=== PATIENT | female | born 1935 | race Caucasian/White ===

== ENCOUNTER → 2020-01-12 14:42 | Outpatient (CLI) | payer MEDICARE, OTHER, SELFPAY ==
--- NOTE | 2020-01-12 | DI.ECHO.S_ITS ---
[place] [facility]---------+ [facility] +---------+ : : [address] : [address] : : : : [id number] : : : : Phone: [phone]+ Echocardiogram Report + + :Name: TREVER THOMAS Study Date: 01/12/2020 Height: 65 in : :[facility] Weight: 192 lb : : Gender: Female BSA: 1.9 m2 : :: 1935 Age: 84 yrs BP: 155/70 mmHg: :Reason For Study: BUNDLE BRANCH BLOCK : : Performed By: Marcelo Car : :Referring: UNSPECIFIED : + + Interpretation Summary Left ventricular systolic function is normal with an estimated ejection fraction of 60 to 65% without any focal wall motion abnormality. The left ventricle is borderline enlarged with normal wall thickness. There is likely a relaxation abnormality with normal filling pressures. The right ventricle appears at the upper limits of normal in size with normal systolic function. Right ventricular systolic pressure cannot be estimated but the CVP is around 3 mmHg. The left atrium is mildly enlarged. There is mild to moderate mitral regurgitation but no other significant valvular abnormality. Procedure: A two-dimensional transthoracic echocardiogram with color flow and Doppler was performed. The study quality was technically adequate. There is no prior echocardiogram noted for this patient. The patient was in normal sinus rhythm during the exam. The patient had occasional PVCs during the exam. Left Ventricle: The left ventricle is borderline dilated. There is normal left ventricular wall thickness. Left ventricular systolic function is normal without focal wall motion abnormalities. The ejection fraction is estimated to be 60-65%. Diastolic parameters suggest a relaxation abnormality of the left ventricle, consistent with probable normal filling pressures. Right Ventricle: The right ventricle is at the upper limits of normal in size. The right ventricular systolic function is normal. Atria: The left atrium is mildly dilated. Right atrial size is normal. The interatrial septum is intact with no evidence for an atrial septal defect. Mitral Valve: The mitral valve leaflets appear normal. There is no evidence of stenosis, fluttering, or prolapse. There is mild to moderate mitral regurgitation. Aortic Valve: The aortic valve is trileaflet. The aortic valve is mildly calcified. The aortic valve opens well. There is no aortic valve stenosis. There is trace aortic regurgitation. Tricuspid Valve: The tricuspid valve is normal in structure and function. There is trace tricuspid regurgitation. Pulmonary artery pressures cannot be estimated because of the lack of a measurable TR jet velocity but the IVC suggests a CVP of around 3 mmHg. Pulmonic Valve: The pulmonic valve is not well seen, but is grossly normal. There is trace pulmonic regurgitation. Great Vessels: The aortic root is normal size. The ascending aorta is at the upper limits of normal in size. The pulmonary artery is normal size. The IVC is of normal diameter and collapses greater than 50% with a sniff. This suggests a low right atrial pressure of 3 mm Hg. Pericardium/ Pleura There is no pericardial effusion. There is no pleural effusion. MMode/2D Measurements & Calculations LVIDd: 5.7 cm LVOT diam: 2.1 cm LVIDs: 3.4 cm Ao root diam: 2.9 cm FS: 39.7 % asc Aorta Diam: 3.4 cm EPSS: 0.96 cm IVSd: 0.97 cm LVPWd: 0.91 cm LV dorado. diameter/BSA (cm/m^2): 2.9 LV sys. diameter/BSA (cm/m^2): 1.8 LA dimension: 4.5 cm RA long axis: 4.8 cm LA A2 area: 23.3 cm2 RA area: 14.1 cm2 LA A4 area: 21.8 cm2 RA vol: 35.4 ml LA length (vol): 6.1 cm RA : 18.2 ml/m2 LA vol: 70.4 ml IVC diam: 1.7 cm LA vol index: 36.2 ml/m2 RVD1 (basal): 3.6 cm RVD2 (mid): 4.3 cm TAPSE: 2.2 cm Doppler Measurements & Calculations Ao V2 max: 166.6 cm/sec LVOT Max Bubba: 114.5 cm/sec Ao V2 mean: 114.4 cm/sec LV V1 max P.2 mmHg Ao max P.1 mmHg LV V1 VTI: 27.2 cm Ao mean P.8 mmHg AICHA(I,D): 2.7 cm2 Ao V2 VTI: 33.5 cm AICHA(V,D): 2.3 cm2 sev ratio: 0.81 AICHA indexed to BSA (cm^2/m^2): 1.4 MV E max bubba: 68.1 cm/sec TR max bubba: 198.2 cm/sec MV A max bubba: 93.6 cm/sec TR max P.7 mmHg MV E/A: 0.73 PA V2 max: 109.0 cm/sec Med Peak E' Bubba: 4.3 cm/sec PA V2 mean: 81.4 cm/sec E/E' med: 15.8 PA mean P.9 mmHg Lat Peak E' Bubba: 4.0 cm/sec PA pr(Accel): 37.9 mmHg E/E' lat: 17.0 E/e' average: 16.4 MV dec time: 0.22 sec SV(LVOT): 91.3 ml Reading Physician:LAN
== END ==
PROVIDERS: Family Provider Internal Medicine; PCP Internal Medicine; Referring Provider Internal Medicine; Visit Provider Internal Medicine
DX: I34.0 Nonrheumatic mitral (valve) insufficiency (principal); I45.4 Nonspecific intraventricular block
CPT/HCPCS: 93306

== ENCOUNTER → 2020-01-28 10:01 | Outpatient (CLI) | payer MEDICARE, OTHER, SELFPAY ==
[2020-01-29 08:11] LABS: COVID19 Sendout Not Detected (Not Detect)
== END ==
PROVIDERS: Family Provider Internal Medicine; PCP Internal Medicine; Visit Provider Nurse Practitioner
DX: Z01.812 Encounter for preprocedural laboratory examination (principal)
CPT/HCPCS: 87635

== ENCOUNTER 2020-01-31 10:47 | Day surgery (SDC) | payer MEDICARE, OTHER, SELFPAY ==
[2020-01-24 09:40] VITALS: BMI 31.1
[2020-01-31] VITALS (15 sets, daily range): BP systolic 90–148; BP diastolic 38–69; PULSE 55–81; RESP 11–21; TEMP 35.5–36.8; O2SAT 95–100; BMI 29.9
--- NOTE | 2020-01-31 | DI.RAD.S_ITS ---
PROCEDURE: XR PELVIS 1-2V INDICATIONS: intra operative TECHNIQUE: Intra-operative view of the pelvis and hip acquired. COMPARISON: None. FINDINGS: Bones: Intraoperative devices prior to placement of arthroplasty prostheses are in expected positions. No fractures or suspicious bony lesions. Soft tissues: Overlying surgical retractors are present, along with other intraoperative changes. IMPRESSION: Normal alignment established in preparation for placement of final components of right total hip arthroplasty. Dictated by: Vernon Mitchell M.D. on 01/31/2020 at 14:33 Approved by: Vernon Mitchell M.D. on 01/31/2020 at 14:33
--- NOTE | 2020-01-31 10:59 | DI.RAD.S_ITS ---
PROCEDURE: XR HIP W PEL IF DONE RT 2V INDICATIONS: total right hip TECHNIQUE: AP pelvis and lateral view of the right hip acquired. COMPARISON: None. FINDINGS: Bones: Patient is status post right hip arthroplasty, with hardware components in expected positions. The hip joint appears congruent. The visualized bony structures appear intact. Soft tissues: Overlying postoperative changes are noted. No suspicious soft tissue densities. IMPRESSION: Normal alignment established after right total hip arthroplasty. Moderate left hip osteoarthritis is noted. Dictated by: Vernon Mitchell M.D. on 01/31/2020 at 16:44 Approved by: Vernon Mitchell M.D. on 01/31/2020 at 16:45
--- NOTE | 2020-01-31 10:59 | P.OP_ITS ---
Operative Date/Time/Diagnoses Date of procedure: 01/31/20 Time of procedure: 11:51 Pre-op diagnosis: Right hip osteoarthritis Post-op diagnosis: same Procedure & Clinicians Procedure: 1. Right total hip arthroplasty posterior approach, 2. right hip abductor repair Same procedure as scheduled: Yes Indications: The patient has had progressively worsening right hip pain with radiographic changes consistent with arthritis. Non-operative management has failed and the patient has requested total hip replacement. The risks, benefits and alternatives to surgery were discussed with the patient prior to proceeding. Risks discussed included, but were not limited to, failure to relieve pain, leg length discrepancy, dislocation, stiffness, infection, nerve damage, deep venous thrombosis, pulmonary embolism, stroke, coma, heart attack, permanent paralysis and , as well as the potential need for eventual revision of the prosthetic. Surgeon: Marisela Burrows Featheredge Machine Operator: Hill Wellington Click Yes if Unassisted: Yes Anesthesia Type: General and Spinal Operative Notes Findings: Severe right hip osteoarthritis, soft bone, large tear in the hip abductors with a fairly bare trochanter, adequate stability Closure Type: primary Specimen(s): none sent Prosthetic devices, grafts, tissues, transplants, or devices: [employer]rows [employer]hew R3 52, size 6 standard offset anthology, -3 femoral head, Arthrex 4.75 x 24 mm SwiveLock anchor Applied: drain(s) Estimated Blood Loss (mL): 250 Procedure in detail: The patient was seen in the pre-operative area, where the patient identified the right hip as the operative site and this was marked with my initials. The patient received pre-operative antibiotics and was taken to the operating room and placed on the operative table in the left lateral decubitus position after satisfactory anesthesia. A sales agent insurance out was performed. The right leg was prepared from the ankle to the iliac crest with ChloroPrep in the usual fashion and draped through sterile drapes. The hip was approached through an approximately 20 cm incision centered over the greater trochanter and curving gently posteriorly as it went proximally. This was carried sharply to the fascia hawk, which was divided and retracted with a self retaining retractor. The trochanteric bursa was excised with care being taken to avoid the sciatic nerve, which was identified and protected throughout the case. There was a fairly large tear in the hip abductors with essentially a bald appearing trochanter. The abductors were carefully mobilized and tension was pulled with an Allis was felt that the likely would be repairable at the completion of the procedure. Sutures were placed to tag the abductors. The short external rotators were incised and the capsulomuscular flap was raised and tagged for later repair. The hip was dislocated, and a femoral neck osteotomy performed approximately 15 mm above the lesser trochanter. Retractors were placed around the femur. The canal was opened with a box cutting osteotome, followed by a T handled reamer and a lateralizing reamer. The chili pepper broach was then used, followed by sequential broaching until there was good stability of the broach in the femur. Retractors were placed to expose the acetabulum. The labrum and central soft tissues were removed. Reaming was performed initially going up in 2 mm increments, then 1 mm increments until good bite was obtained with an odd sized reamer. The cup 1 mm larger than the last reamer was then inserted using the appropriate anteversion guides. A trial neutral liner was placed. The broach was placed in the canal. A trial head and neck were then placed and the hip relocated and checked for leg length and stability. An intraoperative film confirmed the component position and no evidence of fracture. The patient was stable in the position of sleep, of squatting, and could be put through a range of motion with 45 degrees internal rotation without dislocation. At 90 degrees flexion, internal rotation to 70 was possible before dislocation. This was felt to be satisfactory and the appropriate components were opened, and the trials were removed. The acetabular liner was impacted into position. The final stem was then impacted into the prepared femoral canal. A brief Betadine soak was performed while trialing with head options. The hip was meticulously irrigated with normal saline. Finally the femoral head was impacted onto the stem. The acetabulum was cleared of all material and the hip relocated one final time. The capsulomuscular flap was then repaired to the greater trochanter though an awl hole using the tag sutures. The short external rotators were repaired with a nonabsorbable suture. The abductors were meticulously mobilized and stabilized with an Arthrex 4.75 x 24 mm suture anchor with a SwiveLock and then multiple stitches. Reasonable quality repair was achieved. A deep drain was placed and brought out anteriorly. The fascia hawk was closed with Vicryl. The subcutaneous layer was closed with barbed sutures and SteriStrips. An Aquacel Ag dressing was applied and the patient was taken to recovery having tolerated the procedure well. Complications: none Post-operative Condition: stable Disposition: Acute Care Plan for aftercare: The patient will be maintained on a standard total hip replacement protocol with weight bearing as tolerated and posterior hip precautions. The patient will receive Aspirin and sequential compression devices for DVT prophylaxis. The patient will be discharged home when safe for the home environment.
--- NOTE | 2020-01-31 10:59 | PM.PREOP ---
Pre-operative Note COVID-19 COVID-19 status: Negative Interval Note History & Physical reviewed/Exam performed by Physician: Yes Changes to H&P: No
[2020-01-31] MEDS: CELECOXIB 200 MG CAPSULE PO (11:18)
[2020-01-31] MEDS: ACETAMINOPHEN 325 MG TABLET 975 MG PO (11:18)
[2020-01-31] MEDS: LACTATED RINGERS 1,000 ML 42 ML IV ×2 (11:19→13:57)
[2020-01-31] MEDS: VANCOMYCIN 1,000 MG/200 ML PIGGYBACK 200 MG IV (11:36)
[2020-01-31] MEDS: CEFAZOLIN 2 GM/100 ML FROZ.PIGGY IV ×2 (12:01→19:46)
[2020-01-31] MEDS: BUPIVACAINE LIPOSOME 266 MG/20 ML VIAL SUBCUT (12:42)
[2020-01-31] MEDS: BUPIVACAINE 0.25% W/ EPI 30 ML VIAL 60 ML INJ (12:43)
[2020-01-31] MEDS: SODIUM CHLORIDE IRRIG SOLUTION 250 ML, POVIDONE-IODINE SPONGE STICKS 1 APPLIC IRR (12:44)
[2020-01-31] MEDS: TRANEXAMIC ACID 1,000 MG VIAL 2000 MG INJ ×2 (12:44→14:12)
--- NOTE | 2020-01-31 12:51 | SUR.OPER ---
Lateral on padded OR bed. Gel axillary roll. Arms secured on padded armboard with pillow supporting top arm. Padded hip positioner braces x4 - anterior and posterior chest and pelvis. Additional gel pad used anterior pelvis. Gel pad under bottom leg from knee to foot and secured with tape over sheet.
[2020-01-31] MEDS: SODIUM CHLORIDE IRRIG SOLUTION 250 ML, EPINEPHrine 1 MG IRR (13:31)
--- NOTE | 2020-01-31 15:17 | SUR.PHASEI ---
Patient denies pain and nausea. Good pedal pulses. Has sensation at thigh. Unable to move LE's.
[2020-01-31] MEDS: ACETAMINOPHEN 325 MG TABLET 650 MG PO ×2 (16:28→20:52)
[2020-01-31] MEDS: IBUPROFEN 400 MG TABLET PO ×2 (16:28→20:52)
[2020-01-31] MEDS: LACTATED RINGERS 1,000 ML 125 ML IV (16:29)
--- NOTE | 2020-01-31 17:42 | PC.NURSE ---
Shift note: Patient arrived on floor @ 1540. AxOx3, can make needs known. Hx of recent fall (1 wk ago). Minimal movement in BLE, can feel pressure from SCDs only at time of assessment, spinal anethesia in effect. Saturating WNL on RA. Temp low, will continue to monitor. Aquacell to right hip CDI, HV patent and compressed. High fall risk d/t recent fall and sensory deficit from spinal, call light purpose and function education given, demonstration from patient.
[2020-01-31] MEDS: TRAMADOL 50 MG TABLET PO (18:05)
[2020-01-31] MEDS: ASPIRIN EC 81 MG TABLET PO (20:51)
[2020-01-31] MEDS: DOCUSATE 100 MG CAPSULE PO (20:52)
[2020-02-01] MEDS: LACTATED RINGERS 1,000 ML 125 ML IV (00:37)
[2020-02-01 04:20] VITALS: BP 123/57; PULSE 65; RESP 18; TEMP 36.6; O2SAT 98
[2020-02-01] MEDS: CEFAZOLIN 2 GM/100 ML FROZ.PIGGY IV (04:20)
[2020-02-01] MEDS: IBUPROFEN 400 MG TABLET PO ×2 (04:21→10:24)
[2020-02-01 05:56] LABS: Hematocrit 27.1 % (36-46); Hemoglobin 9.4 g/dL (12.0-16.0)
--- NOTE | 2020-02-01 07:59 | PM.PN.1 ---
Subjective Subjective Date Patient Seen: 02/01/20 Time Patient Seen: 07:59 Interval history: she notes that she is doing well. She does not have any nausea. She has been up to the bathroom. Her pain is adequately controlled with Tylenol. Exam Vital Signs (past 8 hours): - 02/01/20 04:20 Temperature 97.8 F Pulse Rate 65 Respiratory Rate 18 Blood Pressure 123/57 L Pulse Oximetry 98 Oxygen Delivery Method Room Air Oxygen Flow Rate 0 Narrative Exam Narrative: Calfs are soft bilaterally, her dressing is dry, she is able to lift her leg without significant difficulty, there is mild pain with gentle range of motion in the hip her leg lengths were equal Objective Labs Result Diagrams: 02/01/20 05:35 Labs: Laboratory Results - last 24 hr 02/01/20 05:35 Hgb 9.4 L Hct 27.1 L Assessment & Plan Assessment & Plan narrative: doing well after total hip arthroplasty. Plan to get her out of bed walking as tolerated and working with physical therapy and anticipate can be discharged home in the afternoon. She has outpatient physical therapy arranged.
[2020-02-01 09:00] VITALS: BP 126/66; PULSE 67; RESP 18; TEMP 36.6; O2SAT 96
[2020-02-01] MEDS: ACETAMINOPHEN 325 MG TABLET 650 MG PO (10:23)
[2020-02-01] MEDS: DOCUSATE 100 MG CAPSULE PO (10:24)
[2020-02-01] MEDS: LORATADINE 10 MG TABLET PO (10:24)
[2020-02-01] MEDS: ASPIRIN EC 81 MG TABLET PO (10:24)
[2020-02-01] MEDS: TELMISARTAN 40 MG TABLET PO (10:31)
--- NOTE | 2020-02-01 11:19 | PT.IIE ---
Current Diagnoses Unilateral primary osteoarthritis, right hip (01/31/20) Surgery Performed Operation Date: 01/31/20 12:15 Actual Procedures p Total Hip Arthroplasty, repair of hip abductor(Right) - Marisela Burrows MD Surgical History (Last Updated 01/24/20 @ 10:26 by Peyton Kaplan RN) History of arthroplasty of left knee (Acute 2016) History of arthroplasty of right knee (Acute 2008) History of colonoscopy (Acute) Hx of appendectomy (Acute) Hx of cholecystectomy (Acute) Hx of hand surgery (Acute) Hx of left hemicolectomy (Acute 05/2002) Hx of tubal ligation (Acute 1973) Medical History (Last Updated 01/24/20 @ 10:26 by Peyton Kaplan RN) Allergic rhinitis (Acute) 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) Colon cancer (Acute) Diastolic murmur (Acute) Hepatitis A (Acute 1956) Hernia (Acute) HLD (hyperlipidemia) (Acute) HTN (hypertension) (Acute) Lipoma (Acute) Ocular hypertension (Acute) Osteoarthritis (Acute) Pre-diabetes (Acute) RBBB (right bundle branch block) (Acute) Subclinical hypothyroidism (Acute) Venous insufficiency of leg (Acute) Physical Therapy Inpatient Evaluation/Re-Eval M1 PT/OT-IP Prior Functional Status Start: 02/01/20 08:26 Freq: NEEDED Status: Active Protocol: Document 02/01/20 09:17 (Rec: 02/01/20 11:19 [id number]) Medical Review Prior Functional Status Medical History Reviewed Yes Diet/Fluid Consistency Regular Communication Pt is an effective communicator with mild ROBINSON. seems to have short term memory deficits. Mobility and Gait Pt had 3 falls within the past 3 months. She uses FWW at all times since she felt her R LE often gave out. Pt mostly home bound and like to sit on her lazy boy chair. She has a high bed that requires her to use a 1 step stool. Activities of Daily Living and IADL's Pt has no difficulty for ADLs but / dtr assist in cooking, cleaning, driving and MD appointments. Social History Household Members spouse,children Living Arrangements Mobile home Number of Floors (Floors) One Floor Number of Stairs To Enter/Railing? rear entrance with 4 LUIS ALBERTO with R rail, L GATE WATCH from dtr. (pt prefers this ) front entrance with 4 LUIS ALBERTO with a landing and B rails. Home Environment Standard Height Toilet,Walk in Shower Home Equipment Front Wheel Walker,Raised Toilet Seat w/Armrests,Tub Transfer Bench Employment Status Retired Additional Social History Comment Pt lives with her in [facility] who is independent but does need to use walker at times. Pt's dtr from [place] will stay with pt for weeks to assist as needed. Pt also has a youngest son lives in [place] but he works timers inspector. Pt will have outpatient therapy at [facility] starting from Thursday. Pt has hx of B TKAs. M2 PT-IP Current Condition Start: 02/01/20 08:26 Freq: NEEDED Status: Active Protocol: Document 02/01/20 09:17 (Rec: 02/01/20 11:19 [email or web address]) Physical Therapy Current Condition Current Condition Evaluation Date 02/01/20 Treatment Diagnosis R YUDITH (Posterior) , difficulty in walking Onset Date 01/31/20 Precautions Posterior Hip Precautions No Hip Flexion > 90 degrees,No Hip Internal Rotation,No Hip Adduction Weight Bearing Status Weight Bearing Status Weight Bear as Tolerated M3 PT-IP Subjective Start: 02/01/20 08:26 Freq: NEEDED Status: Active Protocol: Document 02/01/20 09:17 (Rec: 02/01/20 11:19 [email or web address]) Subjective Physical Therapy Visit Type Type Initial Evaluation Visit Start Time 09:17 Visit Stop Time 09:50 Total Visit Minutes 33 Number of HYDRO TECHNICIAN Visits 0 Physical Therapy Visit Comments Patient Comments I feel pretty good today. Patient Goals to return home with dtr's assistance. Therapy Pain Assessment Pain When Pain Assessed During Mobility Pain Present Pain Present Pain Reported Location Right Hip Intensity 3 Scale Used Numeric (0 - 10) Description Acute Pain Management Techniques Timing of Activity with Medications M4 PT-IP Mobility and Gait Start: 02/01/20 08:26 Freq: NEEDED Status: Active Protocol: Document 02/01/20 09:17 (Rec: 02/01/20 11:19 [email or web address]) PT-Transfer Assessment Sit to and From Stand Sit to and from Stand Contact Guard Assistance,Use of Upper Extremities Equipment Transfer Assistive Device Gait Belt,Front Wheeled Walker Orthotic/Prosthetic Devices or Brace: No Transfers Transfer Destination Chair Transfer Technique FWW Transfer Ability Level of Assist Contact Guard Assistance,Use of Upper Extremities Comments Mobility Comments Pt was in chair after going to bathroom with BALL ROLLING MACHINE OPERATOR assistance upon PT arrival. BP at 131/66 HR 81. Denied any discomfort. Pt was able to recall 1/3 post op precautions and this PT gave her instructions afterwards. She completed sit to stand with slight staggered stance who was able to push off with one hand on armrest and FWW with CGA. She then practiced lateral weight shifting with FWW but had difficulty extending his R hip and knee. Pt then proceed to walk half of the [facility] with CGA FWW, along with W/C follow. She then sat in w/c with proper descent and WB through UEs on armrests. Pt was wheeled to stairs for stairs climbing. Instructed pt at first to lead with L to ascend and R to descend but pt was inconsistent with her strategy with foot placement while climbing 3 steps by using R handrail and L MOD GATE WATCH from this PT, and so was descending. Pt did the second trial who did slightly better but cont to forget to lead with post op leg to descend. Pt had slight difficulty to full WB on RLE and appear to be weak while descending. She then returned to w/c and back to her room and completed chair to chair transfer with stand step pivot with FWW and CGA. pt rested comfortably in chair and denied discomfort but fatigue. Call light placed within reach. BP at 126/75 HR 83 Gait Assessment Gait Gait Assistance Required: Contact Guard Assist Distance (Feet) 80 Able to Maintain Weight Bearing Status Yes During Gait Assistive Devices Assistive Device Gait Belt,Front Wheeled Walker Orthotic/Prosthetic Devices or Brace: No Gait Deviations General Gait Pattern Antalgic,Decreased Stride Length,Decreased Feet Clearance,Flexed Trunk,Lateral Trunk Lean,Step-to Gait Factors Limiting Gait Function Factors Limiting Gait Function Decreased Activity Tolerance, Decreased Strength,Limited Range of Motion,Pain,Poor Balance,Poor Safety Awareness, Respiratory Distress Comments Gait Comments see mobility comments Stair Climbing Assessment Evaluation Level of Assist On Stairs Moderate Assistance,1 Person Assistance Devices Stair Climbing Assistive Devices Straight Cane,Front Wheel Walker Technique/Endurance Stair Climbing Direction Ascend and Descend Stair Climbing Technique Step to Step Number of Steps Climbed 3 Query Text: Stair Climbing Set # Repetitions (reps) 2 Comments Stair Climbing Comments see mobility comments. Pt has difficulty with foot placement and needed mod GATE WATCH to ascend/ descend. R LE appeared to be weak and unstable. PT-Balance Assessment Sitting Balance and Reactions Static Sitting Balance Ability Normal Dynamic Sitting Balance Ability Normal Standing Balance and Reactions Static Standing Balance Ability Good Dynamic Standing Balance Ability Fair Device Used FWW M5 PT-IP Objective Assessments Start: 02/01/20 08:26 Freq: NEEDED Status: Active Protocol: Document 02/01/20 09:17 (Rec: 02/01/20 11:19 [email or web address]) Orientation Orientation/Cognition Level of Alertness Alert Orientation Name,Age,Birthday,Month,Date, Year,Day of Week,Place, Situation Language Function Ability No Deficits Noted Safety Awareness Understands Safety Issues Memory Description Short Term Impaired Comments pt has difficulty recalling post op precautions. Only able to recall 1/3 And need constant cues for foot placements during stair climbing Gross Range of Motion Upper Extremity ROM Assessment Within Functional Limits Lower Extremity ROM Assessment Right Impaired Strength Upper Extremity Strength Assessment Within Functional Limits Lower Extremity Strength Assessment Right Impaired Hip 4-/5 Knee 4+/5 Ankle 5/5 Coordination Assessment Gross Coordination Gross Coordination WNL Sensation Assessment Sensation Gross Sensation WNL Muscle Tone Muscle Tone WNL Yes M6 PT-IP Treatment Start: 02/01/20 08:26 Freq: NEEDED Status: Active Protocol: Document 02/01/20 09:17 (Rec: 02/01/20 11:19 [email or web address]) Physical Therapy Treatment Exercises Exercises Ankle Pumps,Gluteal Sets,Quad Sets Education Education Provided Precautions,Weight Bearing Status,Post-Op Packet,Safety M7 PT-IP Assessment and Plan Start: 02/01/20 08:26 Freq: NEEDED Status: Active Protocol: Document 02/01/20 09:17 (Rec: 02/01/20 11:19 [id number]) PT Summary Assessment and Plan Potential Rehabilitation Potential Good Status of Condition at Evaluation Stable Summary Impairments Pain,ROM,Strength,Balance,Bed Mobility,Transfers,Gait, Activity Tolerance Assessment Summary This is a low complexity evalution for this pleasant 84 yo female s/p POD 1 R YUDITH with posterior approach. Pt was stable with vital signs and did fairly well for transfers and ambulation. However, pt has difficulty remembering post op precautions and understanding strategy for stair climbing regarding foot placements who needed mod GATE WATCH and R rail. Her RLE appeared to be weak and slightly unstable during stair climbing. Recommended to conduct CG training with dtr this afternoon prior to d/c home with her assistance and outpatient PT. Goals Bed Mobility Goal Standby Assistance Transfer Goal Standby Assistance,Front Wheeled Walker Gait Goal Standby Assistance,Front Wheel Walker Gait Distance 150 Other Goals up/ down with 4STE R rail and L GATE WATCH with dtr. Days to Meet Goals 2 Frequency of Treatment Frequency Of Treatment Twice a Day Treatment Plan Physical Therapy Treatment Plan Bed Mobility Training,Transfer Training,Gait Training, Therapeutic Exercise,Balance Retraining,Post Op Education, Discharge Planning,Hot or Cold Pack,Neuromuscular Re-ed Other Recommendations and Next Treatment up/ down with 4STE R rail and Focus L GATE WATCH with dtr. review post op precautions Recommendations To Nursing Amount of Assist Needed 1 Person Assist Discharge Recommendations PT Discharge Recommendations Home with Assistance, Outpatient PT Transportation Needs at Discharge Private Vehicle
--- NOTE | 2020-02-01 11:25 | CM.DANOTE ---
DCP: Case received, EMR reviewed and met with patient. Introduced self and role. Was able to meet with patient to obtain information regarding her baseline activity level prior to surgery, and living situation. DCP assessment completed with information currently available. Patient is an 84 year old female who admitted yesterday morning to the care of the orthopedic team. PCP: Dr. Resendiz. Payer: confirmed: Medicare/[employer]. Patient came to the hospital for a surgical procedure. She had right total hip arthroplasty. Patient has history of osteoarthritis. Met with patient in her room. She is alert and oriented, pleasant. She resides in [place] with her spouse, Maurice. She also mentioned that her daughter will be coming over from [place] to help her out. Patient does have a FWW. She is not currently driving. She also has outpatient P.T. set up at [facility] in [place]. P: Patient is to be discharged home today, as soon as she works with P.T. Lucero Arriaga RN/Service Planner
--- NOTE | 2020-02-01 13:59 | PT.IPTN ---
Current Diagnoses Unilateral primary osteoarthritis, right hip (01/31/20) Surgery Performed Operation Date: 01/31/20 12:15 Actual Procedures p Total Hip Arthroplasty, repair of hip abductor(Right) - Marisela Burrows MD Physical Therapy Treatment Note M2 PT-IP Current Condition Start: 02/01/20 08:26 Freq: NEEDED Status: Active Protocol: Document 02/01/20 09:17 HH (Rec: 02/01/20 11:19 [email or web address]) Physical Therapy Current Condition Current Condition Evaluation Date 02/01/20 Treatment Diagnosis R YUDITH (Posterior) , difficulty in walking Onset Date 01/31/20 Precautions Posterior Hip Precautions No Hip Flexion > 90 degrees,No Hip Internal Rotation,No Hip Adduction Weight Bearing Status Weight Bearing Status Weight Bear as Tolerated M3 PT-IP Subjective Start: 02/01/20 08:26 Freq: NEEDED Status: Active Protocol: Document 02/01/20 13:51 HH (Rec: 02/01/20 13:59 [email or web address]) Subjective Physical Therapy Visit Type Type Treatment Note Visit Start Time 13:32 Visit Stop Time 13:50 Total Visit Minutes 18 Notes Pt's dtr and attended CG training Number of PREPARER SAMPLES AND REPAIRS Visits 0 Physical Therapy Visit Comments Patient Comments Im ready to try stairs again. Patient Goals to return home with dtr's assistance. Therapy Pain Assessment Pain When Pain Assessed During Mobility Pain Present Pain Present Pain Reported M4 PT-IP Mobility and Gait Start: 02/01/20 08:26 Freq: NEEDED Status: Active Protocol: Document 02/01/20 13:51 HH (Rec: 02/01/20 13:59 [email or web address]) PT-Transfer Assessment Sit to and From Stand Sit to and from Stand Standby Assistance,Use of Upper Extremities Equipment Transfer Assistive Device Gait Belt,Front Wheeled Walker Orthotic/Prosthetic Devices or Brace: No Transfers Transfer Destination Chair Transfer Technique FWW Transfer Ability Level of Assist Standby Assistance,Use of Upper Extremities Comments Mobility Comments Pt in chair upon PT arrival. Dtr and at bedside. able to recall all 3/3 precautions and needed min cues for stair climbing techniques. She completed sit stand with UE pushed off from chair SBA. She then amb half of [facility] with FWW SBA. Pt's gait speed is WFL as dtr stated. Pt then climbed 3 steps with R rail and LHHA from dtr x 2sets. She appeared to be steady and able to follow correct techniques for this session. She then returned to w/c and pt's dtr wheeled her back to room. Reviewed post op precautions again with pt's family. Both show good understanding and ready to assist pt at home. Gait Assessment Gait Gait Assistance Required: Contact Guard Assist Distance (Feet) 140 Able to Maintain Weight Bearing Status Yes During Gait Assistive Devices Assistive Device Gait Belt,Front Wheeled Walker Orthotic/Prosthetic Devices or Brace: No Gait Deviations General Gait Pattern Antalgic,Decreased Stride Length,Decreased Feet Clearance,Flexed Trunk,Lateral Trunk Lean,Step-to Gait Factors Limiting Gait Function Factors Limiting Gait Function Decreased Activity Tolerance, Decreased Strength,Limited Range of Motion,Pain,Poor Balance,Poor Safety Awareness, Respiratory Distress Comments Gait Comments see mobility comments Stair Climbing Assessment Evaluation Level of Assist On Stairs Minimal Assistance,1 Person Assistance Devices Stair Climbing Assistive Devices Right Railing Technique/Endurance Stair Climbing Direction Ascend and Descend Stair Climbing Technique Step to Step Number of Steps Climbed 3 Stair Climbing Set # Repetitions (reps) 2 Comments Stair Climbing Comments Pt demonstrated good stair climbing techqniues this time with correct pattern with min MAP DRAFTER from dtr on L side. Pt did not have an episode of giving out on RLE. PT-Balance Assessment Sitting Balance and Reactions Static Sitting Balance Ability Normal Dynamic Sitting Balance Ability Normal Standing Balance and Reactions Static Standing Balance Ability Good Dynamic Standing Balance Ability Fair Device Used FWW M5 PT-IP Objective Assessments Start: 02/01/20 08:26 Freq: NEEDED Status: Active Protocol: Document 02/01/20 09:17 (Rec: 02/01/20 11:19 [id number]) Orientation Orientation/Cognition Level of Alertness Alert Orientation Name,Age,Birthday,Month,Date, Year,Day of Week,Place, Situation Language Function Ability No Deficits Noted Safety Awareness Understands Safety Issues Memory Description Short Term Impaired Comments pt has difficulty recalling post op precautions. Only able to recall 1/3 And need constant cues for foot placements during stair climbing Gross Range of Motion Upper Extremity ROM Assessment Within Functional Limits Lower Extremity ROM Assessment Right Impaired Strength Upper Extremity Strength Assessment Within Functional Limits Lower Extremity Strength Assessment Right Impaired Hip 4-/5 Knee 4+/5 Ankle 5/5 Coordination Assessment Gross Coordination Gross Coordination WNL Sensation Assessment Sensation Gross Sensation WNL Muscle Tone Muscle Tone WNL Yes M6 PT-IP Treatment Start: 02/01/20 08:26 Freq: NEEDED Status: Active Protocol: Document 02/01/20 09:17 HH (Rec: 02/01/20 11:19 HH [id number]) Physical Therapy Treatment Exercises Exercises Ankle Pumps,Gluteal Sets,Quad Sets Education Education Provided Precautions,Weight Bearing Status,Post-Op Packet,Safety M7 PT-IP Assessment and Plan Start: 02/01/20 08:26 Freq: NEEDED Status: Active Protocol: Document 02/01/20 13:51 HH (Rec: 02/01/20 13:59 HH [id number]) PT Summary Assessment and Plan Potential Rehabilitation Potential Good Status of Condition at Evaluation Stable Summary Impairments Pain,ROM,Strength,Balance,Bed Mobility,Transfers,Gait, Activity Tolerance Progress Towards Goals Safe For Discharge Assessment Summary Pt's dtr and attended CG training session. Pt was able to recall all 3 precautions and min cues for stair climbing techniques. Pt' s dtr was able to assist pts; climbing stairs with min MAP DRAFTER and show good understanding of post op precautions. She previously assisted pt for her TKAs as well. Pt is safe to be d./c home with outpatient PT. Frequency of Treatment Frequency Of Treatment Discharge Recommendations To Nursing Amount of Assist Needed 1 Person Assist Discharge Recommendations PT Discharge Recommendations Home with Assistance, Outpatient PT Transportation Needs at Discharge Private Vehicle
== END 2020-02-01 14:43 | disposition home or self-care (01) ==
LOC: OR 10:49 → AC 10:55
PROVIDERS: Family Provider Internal Medicine; PCP Internal Medicine; Referring Provider Orthopaedic Surgery; Visit Provider Orthopaedic Surgery
PROC: 0SR90JZ Replacement of Right Hip Joint with Synthetic Substitute, Open Approach (ICD-10-PCS; CPT 27130; principal; 2020-01-31 12:15)
DX: M16.11 Unilateral primary osteoarthritis, right hip (principal); I10 Essential (primary) hypertension; E66.9 Obesity, unspecified
CPT/HCPCS: 27130; 36415; 72170; 73502; 85014; 85018; 97116; 97161; 97530; C1776; C9290; J0171; J0690; J2250; J2704; J3010

== ENCOUNTER → 2020-03-28 10:35 | Outpatient (CLI) | payer MEDICARE, OTHER, SELFPAY ==
[2020-01-31 15:51] VITALS: BMI 29.9
[2020-03-28 11:48] LABS: BUN Creatinine Ratio 19.5 (6-22); Blood Urea Nitrogen 15 mg/dL (7-17); Estimated Glomerular Filt Rate > 60.0 mL/min (>60)
== END ==
PROVIDERS: Family Provider Internal Medicine; PCP Internal Medicine; Referring Provider Orthopaedic Surgery; Visit Provider Orthopaedic Surgery
DX: M16.11 Unilateral primary osteoarthritis, right hip (principal); Z96.653 Presence of artificial knee joint, bilateral
CPT/HCPCS: 36415; 82565; 84520

== ENCOUNTER → 2020-03-29 11:26 | Outpatient (CLI) | payer MEDICARE, OTHER, SELFPAY ==
[2020-01-31 15:51] VITALS: BMI 29.9
--- NOTE | 2020-03-29 | DI.MRI.S_ITS ---
PROCEDURE: MR THORACIC SPINE WO/W CON INDICATIONS: Localized swelling, mass and lump, trunk TECHNIQUE: Noncontrast sagittal T1 spin echo and T2 fast spin echo, sagittal STIR, axial T1 and T2 fast spin echo through the thoracic spine. After the administration of contrast, axial and sagittal T1 spin echo with fat saturation through the thoracic spine. COMPARISON: None. FINDINGS: Image quality: Excellent. Alignment and curvature: Mild dextroconvex scoliotic curvature is seen. Accentuated thoracic kyphosis is seen. No focal AP alignment abnormality is seen. Marrow: Marrow is of normal overall signal. No acute vertebral body compression fractures. Spinal cord: Visualized spinal cord is of normal signal and size, without abnormal enhancement. Paraspinous soft tissues: No paravertebral masses or abnormal enhancement. Miscellaneous: Several levels of endplate irregularity are seen, which are overall most prominent at the T4-T5 level. Several levels of bridging anterior osteophytes are seen. No significant central canal or neural foraminal narrowing can be seen. Note is made of lower cervical spine degenerative change. IMPRESSION: Dextroconvex scoliotic curvature and accentuated thoracic kyphosis can be seen. Degenerative changes are seen, which are most prominent at the T4-T5 level, yet without a level of significant central canal or neural foraminal narrowing. Cervical spine degenerative changes are partially seen. If clinically appropriate, please consider a follow-up cervical spine MRI for further evaluation. Dictated by: Tano Berg M.D. on 03/29/2020 at 11:53 Approved by: Tano Berg M.D. on 03/29/2020 at 11:55
== END ==
PROVIDERS: Family Provider Internal Medicine; PCP Internal Medicine; Referring Provider Internal Medicine; Visit Provider Orthopaedic Surgery
DX: D17.1 Benign lipomatous neoplasm of skin and subcutaneous tissue of trunk (principal); M40.204 Unspecified kyphosis, thoracic region; M47.812 Spondylosis without myelopathy or radiculopathy, cervical region; M47.814 Spondylosis without myelopathy or radiculopathy, thoracic region
CPT/HCPCS: 72157

== ENCOUNTER 2021-01-30 17:51 | Emergency (ER) | payer MEDICARE, OTHER, SELFPAY ==
[2020-01-31 15:51] VITALS: BMI 29.9
--- NOTE | 2021-01-30 18:05 | DI.CT.S_ITS ---
PROCEDURE: CT HEAD/BRAIN WO CON INDICATIONS: trauma TECHNIQUE: Noncontrast 4.5 mm thick angled axial sections acquired from the foramen magnum to the vertex, with coronal and sagittal reformats. For radiation dose reduction, the following was used: automated exposure control, adjustment of mA and/or kV according to patient size. COMPARISON: None. FINDINGS: Image quality: Excellent. CSF spaces: Basal cisterns are patent. No extra-axial fluid collections. The ventricles are symmetric in size and shape. Brain: No intracranial bleeds or masses. There is cerebral volume loss for age, with resultant ventricular and sulcal prominence. There are periventricular and deep white matter chronic small vessel ischemic changes. There is intracranial internal carotid artery atherosclerosis. Skull and face: Calvarium and visualized facial bones appear intact, without suspicious lesions. Sinuses: Bilateral maxillary sinus mucosal thickening. IMPRESSION: No acute intracranial process. Mild bilateral maxillary sinus disease Dictated by: Redd Lewis M.D. on 01/30/2021 at 18:32 Approved by: Redd Lewis M.D. on 01/30/2021 at 18:33
--- NOTE | 2021-01-30 18:05 | DI.CT.S_ITS ---
PROCEDURE: CT CERVICAL SPINE WO CON INDICATIONS: trauma TECHNIQUE: Noncontrast 3 mm thick sections acquired from the skull base to the T4 level. Sagittal and coronal reformats were then constructed. For radiation dose reduction, the following was used: automated exposure control, adjustment of mA and/or kV according to patient size. COMPARISON: None. FINDINGS: Image quality: Excellent. Bones: No fractures or dislocations. Visualized superior ribs are intact. Loss of the normal cervical lordosis. Multilevel degenerative endplate sclerosis and spurring. Diffuse facet arthropathy. Moderate narrowing of the C5-C6 and C6-C7 disc spaces. There is diffuse mild to moderate narrowing throughout the remainder of the cervical and upper thoracic spine. Diffuse osteopenia. Soft tissues: Prevertebral soft tissues are normal in thickness. No paravertebral hematomas. No apical pneumothoraces. Presumed calcified granuloma seen in the right upper lobe on image 75. IMPRESSION: No acute fracture identified. Multilevel spondylosis and facet arthropathy. Diffuse osteopenia Dictated by: Redd Lewis M.D. on 01/30/2021 at 18:33 Approved by: Redd Lewis M.D. on 01/30/2021 at 18:37
[2021-01-30 18:06] VITALS: BP 154/70; PULSE 74; RESP 22; TEMP 36.9; O2SAT 96
--- NOTE | 2021-01-30 18:06 | DI.RAD.S_ITS ---
PROCEDURE: XR HIP W PEL IF DONE RT 2V INDICATIONS: trauma TECHNIQUE: AP pelvis with lateral view(s) of the right hip(s). COMPARISON: [facility], , XR HIP W PEL IF DONE RT 2V, 01/31/2020, 15:05. FINDINGS: Bones: No acute fracture. Expected alignment of right hip arthroplasty. The hardware appears intact. No evidence of hardware loosening. Lower lumbar spondylosis and mild left hip joint degeneration. Soft tissues: The visualized bowel gas pattern is normal. No suspicious soft tissue calcifications. IMPRESSION: Expected postoperative alignment. No acute fracture. Dictated by: Redd Lewis M.D. on 01/30/2021 at 18:56 Approved by: Redd Lewis M.D. on 01/30/2021 at 18:58
--- NOTE | 2021-01-30 19:07 | ED_ITS ---
HPI - General Adult General Chief complaint: Trauma Stated complaint: fell on sat, black eyes Time Seen by Provider: 01/30/21 18:27 Source: patient and family Mode of arrival: Ambulatory History of Present Illness HPI narrative: Patient is a 85-year-old female who is not on anticoagulation who several days ago was sitting down on to her toilet at home when she states that her feet went out from under her and she fell forward hitting her head on a piece of furniture. There was no loss of consciousness. She did sustain a bruise to the front of her head. She reports no other injuries from the event. Stated that she did not come in to get seen at that time however today when she woke up she noticed that she had 2 black eyes which she did not have prior to today. Because of this she decided to come in for evaluation. She also was complaining of right hip pain but has been ambulatory since the event. Also has a abrasion on her left elbow. Related Data Home Medications Medication Instructions Recorded Confirmed fluticasone propionate 50 1 spray INTRANASAL QDAY #0 11/28/16 01/31/20 mcg/actuation nasal spray,suspension acetaminophen 500 mg tablet 1,000 mg PO BEDTIME 01/24/20 01/31/20 (Acetaminophen Extra Strength) loratadine 10 mg capsule 10 mg PO DAILY 01/24/20 01/31/20 telmisartan 40 1 tab PO DAILY 01/24/20 01/31/20 mg-hydrochlorothiazide 12.5 mg tablet (Micardis HCT) Previous Rx's Medication Instructions Recorded aspirin 81 mg tablet,delayed 81 mg PO BID #60 tab 02/01/20 release ibuprofen 400 mg tablet 400 mg PO Q4HR #90 tab 02/01/20 tramadol 50 mg tablet 50 mg PO QID PRN #10 tab 02/01/20 Allergies Allergy/AdvReac Type Severity Reaction Status Date / Time ramipril [RAMIPRIL] Allergy Severe SWELLING, Verified 01/31/20 11:18 DIFFICULTY BREATHING morphine [MORPHINE] Allergy Intermediate RED LINE Verified 01/31/20 11:18 UP THE ARM WHEN GIVEN IV Review of Systems Constitutional Constitutional: Reports system reviewed and no additional complaints, except as documented and Denies headache(s) Eyes Eyes: Reports as per HPI Comments: Reports no vision changes ENT Ears, Nose, Mouth, and Throat: Denies headache(s) Cardiovascular Comments: No chest pain Respiratory Comments: No shortness of breath Gastrointestinal Comments: No abdominal pain Genitourinary Genitourinary: Reports system reviewed and no additional complaints, except as documented Musculoskeletal Comments: Right hip pain Integumentary/Breasts Comments: Broken around her eyes come abrasion on left elbow, bruise on her flank Neurologic Neurologic: Denies headache(s) Psychiatric Psychiatric: Reports system reviewed and no additional complaints, except as documented Endocrine Endocrine: Reports system reviewed and no additional complaints, except as documented Hematologic/Lymphatic On Anticoagulants: No Allergic/Immunologic Allergic/Immunologic: Reports system reviewed and no additional complaints, except as documented Patient History Medical History Allergic rhinitis 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 Colon cancer Diastolic murmur Hepatitis A (1956) Hernia HLD (hyperlipidemia) HTN (hypertension) Lipoma Ocular hypertension Osteoarthritis Pre-diabetes RBBB (right bundle branch block) Subclinical hypothyroidism Venous insufficiency of leg Surgical History (Updated 01/24/20 @ 10:26 by Peyton Kaplan RN) History of arthroplasty of left knee (2016) History of arthroplasty of right knee (2008) History of colonoscopy Hx of appendectomy Hx of cholecystectomy Hx of hand surgery Hx of left hemicolectomy (05/2002) Hx of tubal ligation (1973) Social History household members: spouse and children Smoking Status: Never smoker alcohol intake: former Smoking Status: Never smoker alcohol intake frequency: holidays/special occasions only Substance Use Type: does not use Exam Initial Vital Signs Initial Vital Signs: Vital Signs Temperature 98.4 F 01/30/21 18:06 Pulse Rate 74 01/30/21 18:06 Respiratory Rate 22 01/30/21 18:06 Blood Pressure 154/70 H 01/30/21 18:06 Pulse Oximetry 96 01/30/21 18:06 Const General: cooperative, healthy appearing, comfortable and well developed HENCA Head: other (Healing contusion on her right forehead) Eyes Other: Does have contusion nasal aspect bilateral inferior eyelids. Rest of her eye exam is unremarkable Neck Neck: normal visual inspection Chest Chest: No crepitus and No tenderness Resp Effort & Inspection: normal respiratory effort Auscultation: clear to auscultation bilaterally Cardio Rate: regular rate Rhythm: regular rhythm GI Inspection: normal to inspection Other: Contusion of flank Back/Spine/Pelvis Cervical Spine: No cervical spinal tenderness Thoracic/Lumbar Spine: No thoracic spinal tenderness and No lumbar spinal tenderness Skin Other: Contusion on her flank, of a small superficial abrasion to her left elbow. Contusion under her eyes. Healing contusion right forehead Neuro General: patient alert, patient awake and patient oriented x3 Gait: normal gait Extrem Other: Bilateral upper extremities unremarkable. Back unremarkable. Pelvis is stable. Patient does have some discomfort with movement of her right hip. Her left lower extremities unremarkable. Psych Appearance: grossly normal and well kempt Course Orders Ordered: ED Orders 01/30/21 18:05 CT cervical spine wo con Stat CT head/brain wo con Stat 01/30/21 18:06 XR hip w pel if done RT 2V Stat Vital Signs Vital signs: Vital Signs - 8 hr 01/30/21 19:28 Pulse Rate 67 Respiratory Rate 14 Blood Pressure 131/62 Pulse Oximetry 95 Medical Decision Making Imaging Data CT - cervical spine: Radiologist's Impression: [address] [id number] Scan ReportSigned Patient: Verito Cadena LMR#: [id number]: 1935cct:[id number]/Sex: 85 / FDate of Service: 01/30/21Loc: EDAccession Number: [id number] Procedure: CT cervical spine wo con Ordering Provider: Tobias Barr D.O. PROCEDURE: CT CERVICAL SPINE WO CON INDICATIONS: trauma TECHNIQUE: Noncontrast 3 mm thick sections acquired from the skull base to the T4 level. Sagittal and coronal reformats were then constructed. For radiation dose reduction, the following was used: automated exposure control, adjustment of mA and/or kV according to patient size. COMPARISON: None. FINDINGS: Image quality: Excellent. Bones: No fractures or dislocations. Visualized superior ribs are intact. Loss of the normal cervical lordosis. Multilevel degenerative endplate sclerosis and spurring. Diffuse facet arthropathy. Moderate narrowing of the C5-C6 and C6-C7 disc spaces. There is diffuse mild to moderate narrowing throughout the remainder of the cervical and upper thoracic spine. Diffuse osteopenia. Soft tissues: Prevertebral soft tissues are normal in thickness. No paravertebral hematomas. No apical pneumothoraces. Presumed calcified granuloma seen in the right upper lobe on image 75. IMPRESSION: No acute fracture identified. Multilevel spondylosis and facet arthropathy. Diffuse osteopenia Dictated by: Redd Lewis M.D. on 01/30/2021 at 18:33 Approved by: Redd Lewis M.D. on 01/30/2021 at 18:37 CT scan - head: Radiologist's Impression: [address] [id number] Scan ReportSigned Patient: Verito Cadena LMR#: [id number]: 6Acct:[id number]/Sex: 85 / FDate of Service: 01/30/21Loc: EDAccession Number: [id number] Procedure: CT head/brain wo con Ordering Provider: Tobias Barr D.O. PROCEDURE: CT HEAD/BRAIN WO CON INDICATIONS: trauma TECHNIQUE: Noncontrast 4.5 mm thick angled axial sections acquired from the foramen magnum to the vertex, with coronal and sagittal reformats. For radiation dose reduction, the following was used: automated exposure control, adjustment of mA and/or kV according to patient size. COMPARISON: None. FINDINGS: Image quality: Excellent. CSF spaces: Basal cisterns are patent. No extra-axial fluid collections. The ventricles are symmetric in size and shape. Brain: No intracranial bleeds or masses. There is cerebral volume loss for age, with resultant ventricular and sulcal prominence. There are periventricular and deep white matter chronic small vessel ischemic changes. There is intracranial internal carotid artery atherosclerosis. Skull and face: Calvarium and visualized facial bones appear intact, without suspicious lesions. Sinuses: Bilateral maxillary sinus mucosal thickening. IMPRESSION: No acute intracranial process. Mild bilateral maxillary sinus disease Dictated by: Redd Lewis M.D. on 01/30/2021 at 18:32 Approved by: Redd Lewis M.D. on 01/30/2021 at 18:33 Extremity x-ray #1: Radiologist's Impression: [address] [id number] ReportSigned Patient: Verito Cadena LMR#: [id number]: 6Acct:[id number]/Sex: 85 / FDate of Service: 01/30/21Loc: EDAccession Number: [id number] Procedure: XR hip w pel if done RT 2V Ordering Provider: Tobias Barr D.O. PROCEDURE: XR HIP W PEL IF DONE RT 2V INDICATIONS: trauma TECHNIQUE: AP pelvis with lateral view(s) of the right hip(s). COMPARISON: [facility], CR, XR HIP W PEL IF DONE RT 2V, 01/31/2020, 15:05. FINDINGS: Bones: No acute fracture. Expected alignment of right hip arthroplasty. The hardware appears intact. No evidence of hardware loosening. Lower lumbar spondylosis and mild left hip joint degeneration. Soft tissues: The visualized bowel gas pattern is normal. No suspicious soft tissue calcifications. IMPRESSION: Expected postoperative alignment. No acute fracture. Dictated by: Redd Lewis M.D. on 01/30/2021 at 18:56 Approved by: Redd Lewis M.D. on 01/30/2021 at 18:58 MDM Narrative Medical decision making narrative: Status appear to be mechanical fall that happened several days ago. Not on anticoagulation. Radiologic studies all negative for any acute fractures. Does have multiple sites of contusion and an abrasion to her left elbow. None of which need acute intervention in the emergency department. I did discuss this with the patient. We discussed return precautions and follow-up instructions. She expressed understanding and agreement. Discharge Plan Departure Patient Disposition: Home Clinical Impression: Contusion of scalp, Black eye of left side, Black eye of right side, Contusion of hip, Contusion of flank, Abrasion of elbow, right Instructions: Eye Contusion, How to Prevent Falls Activity Restrictions/Additional Instructions: You can continue all of your medications as directed. There were no fractures noted on any of the CT scans or x-rays today. Contact your primary provider for a follow-up. Return to the emergency department for any new or worsening symptoms Prescriptions: No Action fluticasone propionate 16 GM spray,suspension 1 spray Intranasal QDAY Qty: 0 RF: 0 telmisartan-hydrochlorothiazid [Micardis HCT] 40-12.5 mg Tablet 1 tab PO DAILY RF: 0 loratadine 10 mg Capsule 10 mg PO DAILY RF: 0 acetaminophen [Acetaminophen Extra Strength] 500 mg Tablet 1,000 mg PO BEDTIME RF: 0 aspirin 81 mg Tablet,Delayed Release (Dr/Ec) 81 mg PO BID Qty: 60 RF: 0 tramadol 50 mg Tablet 50 mg PO QID PRN (Reason: Pain, Moderate (4-6)) Qty: 10 RF: 0 ibuprofen 400 mg Tablet 400 mg PO Q4HR Qty: 90 RF: 0 Referrals: Latia Resendiz MD [Primary Care Provider] -
[2021-01-30 19:28] VITALS: BP 131/62; PULSE 67; RESP 14; O2SAT 95
== END 2021-01-30 19:29 | disposition home or self-care (01) ==
PROVIDERS: Emergency Provider Emergency Medicine; Family Provider Internal Medicine; PCP Internal Medicine
DX: S00.03XA Contusion of scalp, initial encounter (principal); S00.12XA Contusion of left eyelid and periocular area, initial encounter; S00.11XA Contusion of right eyelid and periocular area, initial encounter; S70.01XA Contusion of right hip, initial encounter; S30.1XXA Contusion of abdominal wall, initial encounter; M25.551 Pain in right hip; S50.312A Abrasion of left elbow, initial encounter; W18.12XA Fall from or off toilet with subsequent striking against object, initial encounter
CPT/HCPCS: 36415; 70450; 72125; 73502; 99284

== ENCOUNTER → 2021-06-19 12:54 | Outpatient (CLI) | payer MEDICARE, OTHER, SELFPAY ==
[2020-01-31 15:51] VITALS: BMI 29.9
== END ==
PROVIDERS: Family Provider Internal Medicine; PCP Internal Medicine; Referring Provider Podiatrist; Visit Provider Family Medicine
DX: G60.9 Hereditary and idiopathic neuropathy, unspecified (principal)
CPT/HCPCS: 99203; 99214

== ENCOUNTER 2022-07-27 17:48 | Emergency (ER) | payer MEDICARE, OTHER, SELFPAY ==
[2020-01-31 15:51] VITALS: BMI 29.9
[2022-07-27] VITALS (9 sets, daily range): BP systolic 181–201; BP diastolic 77–81; PULSE 56–62; RESP 19; TEMP 36.9; O2SAT 96–98; BMI 26.2
--- NOTE | 2022-07-27 18:24 | ED.BACK ---
HPI - Back Pain/Injury <Maxine Kelly PA-C - Last Filed: 07/27/22 20:59> General Chief Complaint: Back Pain/Injury Stated Complaint: back pain x4 days Time Seen by Provider: 07/27/22 17:58 Source: patient History of Present Illness HPI Narrative: Patient is a very pleasant 87 years old female, who was brought in by her concerned family. Apparently for past 4 days she has been experiencing mid back pain which radiates across her back. She tried Tylenol ibuprofen without relief. Due to pain she is stopped eating and drinking. Her family did the best they could to keep her well hydrated however yesterday she was seen in [place] ED with some slurred speech, fatigue, extensive workup was done in ER, including CT head which was apparently normal. She was tentatively diagnosed with TIA, placed on baby aspirin. When asked, patient commands she did not really recall that they did work on her midback pain of which was initially problem. Patient describes pain as intermittent, worse with sitting down, or getting up positions, leaning forward, or sleeping in recliner helps with the pain. That is what she has been doing for the past 4 days however that does not seem to really is her pain overall. Concerned family brought patient in ER, mainly due to her unrelenting pain, they state that in [facility] ED she has had negative urine screen for UTI, negative head CT scan. Related Data Home Medications Medication Instructions Recorded Confirmed fluticasone propionate 50 1 spray intranasal QDAY ##0 11/28/16 03/24/22 mcg/actuation nasal spray,suspension acetaminophen 500 mg tablet 1,000 mg PO BEDTIME 01/24/20 03/24/22 (Acetaminophen Extra Strength) loratadine 10 mg capsule 10 mg PO DAILY 01/24/20 03/24/22 telmisartan 40 1 tab PO DAILY 01/24/20 03/24/22 mg-hydrochlorothiazide 12.5 mg tablet (Micardis HCT) Previous Rx's Medication Instructions Recorded aspirin 81 mg tablet,delayed 81 mg PO BID #60 tabs 02/01/20 release ibuprofen 400 mg tablet 400 mg PO Q4HR #90 tabs 02/01/20 tramadol 50 mg tablet 50 mg PO QID PRN Pain, Moderate 02/01/20 (4-6) #10 tabs tramadol 50 mg tablet 50 mg PO TID PRN pain #20 tabs 07/27/22 Allergies Allergy/AdvReac Type Severity Reaction Status Date / Time ramipril [RAMIPRIL] Allergy Severe SWELLING, Verified 07/27/22 18:10 DIFFICULTY BREATHING morphine [MORPHINE] Allergy Intermediate RED LINE Verified 07/27/22 18:10 UP THE ARM WHEN GIVEN IV Review of Systems <Maxine Kelly PA-C - Last Filed: 07/27/22 20:59> Review of Systems Narrative: GENERAL: Denies chills, admits to fatigue, no malaise, fever, sweats. HEENT: Denies sinus pain, ear pain, sore throat, difficulty swallowing, dizziness. RESPIRATORY: Denies dyspnea, cough, wheezing, hemoptysis, sputum. CARDIOVASCULAR: Denies chest pain, palpitations, orthopnea, edema, GASTROINTESTINAL: Denies nausea, vomiting, abdominal pain, diarrhea, constipation, melena. : Denies dysuria, frequency, incontinence, hematuria, urinary retention. MUSCULOSKELETAL: As per HPI SKIN: Denies rash, skin lesions, or other NEUROLOGIC: Denies weakness, headache, numbness, change in speech, confusion, seizures, incoordination. PSYCHIATRIC: No concerning psychosocial issues. 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 Colon cancer Diastolic murmur Hepatitis A (195) Hernia HLD (hyperlipidemia) HTN (hypertension) Lipoma Ocular hypertension Osteoarthritis Pre-diabetes RBBB (right bundle branch block) Subclinical hypothyroidism Venous insufficiency of leg Surgical History (Updated 01/24/20 @ 10:26 by Peyton Kaplan RN) History of arthroplasty of left knee (2016) History of arthroplasty of right knee (2008) History of colonoscopy Hx of appendectomy Hx of cholecystectomy Hx of hand surgery Hx of left hemicolectomy (05/2002) Hx of tubal ligation (1973) Social History household members: spouse and children Smoking Status: Never smoker alcohol intake: former Smoking Status: Never smoker alcohol intake frequency: holidays/special occasions only Substance Use Type: does not use Exam <ROSA Pinzon Last Filed: 07/27/22 20:59> Narrative Exam Narrative: GENERAL: 87 year old patient appears stated age. Well-developed patient, in no acute distress. Appears pleasant talkative cooperative. Answers questions appropriately HEAD: Atraumatic. Normocephalic. EYES: Pupils equal round and reactive. Extraocular motions intact. No scleral icterus. No injection or drainage. ENT: Nose without bleeding, purulent drainage. Throat without erythema, tonsillar hypertrophy or exudate. Airway patent. NECK: Trachea midline. Non tender CARDIOVASCULAR: Regular rate and rhythm without murmurs, gallops, or rubs. RESPIRATORY: Clear to auscultation. Breath sounds equal bilaterally. No wheezes, rales, or rhonchi. GASTROINTESTINAL: Abdomen soft, non-tender, nondistended. EXTREMITIES: No edema or joint tenderness. BACK: Lower thoracic and upper lumbar tenderness bilaterally, there is no flank tenderness. NEURO: AOx3. No focal deficit. Light touch, pinprick sensation are intact lower extremity. Reflexes are hypoactive bilateral. SKIN: No rash or erythema of visible areas Initial Vital Signs Initial Vital Signs: Vital Signs Temperature 98.4 F 07/27/22 18:03 Pulse Rate 62 07/27/22 18:03 Respiratory Rate 19 07/27/22 18:03 Blood Pressure 201/79 H 07/27/22 18:03 Pulse Oximetry 98 07/27/22 18:03 Oxygen Delivery Method 07/27/22 18:03 <Enedelia Quinteros DO - Last Filed: 07/28/22 03:49> Initial Vital Signs Initial Vital Signs: Vital Signs Temperature 98.4 F 07/27/22 18:03 Pulse Rate 62 07/27/22 18:03 Respiratory Rate 19 07/27/22 18:03 Blood Pressure 201/79 H 07/27/22 18:03 Pulse Oximetry 98 07/27/22 18:03 Oxygen Delivery Method 07/27/22 18:03 Course <Maxine Kelly PA-C - Last Filed: 07/27/22 20:59> Orders Ordered: ED Orders 07/27/22 20:10 XR thoracic spine 2V Stat 07/27/22 20:11 XR lumbar spine 2-3V Stat Discontinued Medications Tramadol HCl (Tramadol 50 Mg Prepack) 1 bottle MISC SEEINSTR ONE Stop: 07/27/22 20:13 Last Admin: 07/27/22 21:03 Dose: 1 bottle Documented By: CONY Vital Signs Vital signs: Vital Signs - 8 hr 07/27/22 20:00 07/27/22 20:30 07/27/22 21:00 Pulse Rate 56 L 57 L 57 L Blood Pressure Pulse Oximetry 97 98 97 07/27/22 21:04 07/27/22 21:06 07/27/22 21:06 Pulse Rate 58 L 57 L Blood Pressure 181/81 H Pulse Oximetry 97 96 <Enedelia Quinteros DO - Last Filed: 07/28/22 03:49> Orders Ordered: ED Orders 07/27/22 20:10 XR thoracic spine 2V Stat 07/27/22 20:11 XR lumbar spine 2-3V Stat Discontinued Medications Tramadol HCl (Tramadol 50 Mg Prepack) [facility] Stop: 07/27/22 20:13 Last Admin: 07/27/22 21:03 Dose: 1 bottle Documented By: CONY Vital Signs Vital signs: Vital Signs - 8 hr 07/27/22 20:00 07/27/22 20:30 07/27/22 21:00 Pulse Rate 56 L 57 L 57 L Blood Pressure Pulse Oximetry 97 98 97 07/27/22 21:04 07/27/22 21:06 07/27/22 21:06 Pulse Rate 58 L 57 L Blood Pressure 181/81 H Pulse Oximetry 97 96 [facility] - Back Pain/Injury <Maxine Kelly PA-C - Last Filed: 07/27/22 20:59> Imaging Data Thoracic, lumbar spine x-rays: Radiologist's Impression: Generalized degenerative changes are seen, with several levels mild disc space narrowing with associated endplate irregularity and sclerosis.? Several levels of bridging anterior osteophytes are seen.? ? Soft tissues:? No paravertebral stripe thickening.? Atherosclerotic calcification of the aortic arch is noted.? Right upper quadrant clips are seen. ? ? IMPRESSION:? No david, acute plain film abnormality can be seen. ? If there is point tenderness (or other clinical suspicion for a fracture not seen on these images) then a dedicated CT could be considered for further evaluation, if clinically appropriate. ? ? [facility] Narrative Medical decision making narrative: Discussed with patient and family diagnosis and treatment. Her lumbar thoracic x-rays showed degenerative changes, patient perhaps developed diskitis. Discussed with patient treatment, consisting of taking NSAIDs, advised to try tramadol, alternating with Tylenol. Heat, gentle PT also advised. Seek attention with her PCP if symptoms will not resolve. Patient was given 1 dose of tramadol, Patient's symptoms improved over duration of stay with above-stated therapies. Findings and discharge diagnosis discussed with patient/family followed by verbalization of understanding Return precautions discussed with patient/family whom verbalize understanding. Discharge Plan Departure Patient Disposition: Home Clinical Impression: Discitis, Acute back pain Instructions: DI for Back Pain With Sciatica Activity Restrictions/Additional Instructions: *You have been diagnosed with disc degenerative disease, perhaps diskitis *Please continue to take your regular medications as directed. New medication prescriptions sent to your pharmacy: Tramadol *Please follow up with your primary care provider in 2-3 days, call for an appointment. Let them know you were seen in the Emergency Department and that we ask that you be seen in follow up. We will electronically transmit a record of today's note if your PCP is in our system *If you do not have a primary care provider please contact the [facility] Resource line at [phone]. They will ask some questions about your medical history and help get you set up with a doctor in the community. *Return to Emergency Department if you should have any new, worsening or concerning symptoms, such as worsening pain, persistent vomiting or other bothersome symptoms] Prescriptions: New tramadol 50 mg tablet 50 mg PO TID PRN (Reason: pain) Qty: 20 0RF No Action fluticasone propionate 16 GM spray,suspension 1 spray Intranasal QDAY Qty: 0 telmisartan-hydrochlorothiazid [Micardis HCT] 40-12.5 mg Tablet 1 tab PO DAILY loratadine 10 mg Capsule 10 mg PO DAILY acetaminophen [Acetaminophen Extra Strength] 500 mg Tablet 1,000 mg PO BEDTIME aspirin 81 mg Tablet,Delayed Release (Dr/Ec) 81 mg PO BID Qty: 60 0RF tramadol 50 mg Tablet 50 mg PO QID PRN (Reason: Pain, Moderate (4-6)) Qty: 10 0RF ibuprofen 400 mg Tablet 400 mg PO Q4HR Qty: 90 0RF Referrals: Latia Resendiz MD [Primary Care Provider] - <Enedelia Quinteros DO - Last Filed: 07/28/22 03:49> Cosign ED Attending Cosignature Attestation: I was immediately available in the department for consultation. Documentation has been reviewed.
--- NOTE | 2022-07-27 20:10 | DI.RAD.S_ITS ---
PROCEDURE: XR THORACIC SPINE 2V INDICATIONS: mid back pain TECHNIQUE: 3 views of the thoracic spine were acquired. COMPARISON: [facility], CR, XR LUMBAR SPINE 2-3V, 07/27/2022, 20:11. [facility], MR, MR THORACIC SPINE WO/W CON, 03/29/2020, 11:54. FINDINGS: Bones: No fractures or dislocations. No suspicious bony lesions. 12 pairs of ribs are noted, and appear intact where visualized. S-shaped scoliotic curvature is seen. Accentuated thoracic kyphosis is seen. Generalized degenerative changes are seen, with several levels mild disc space narrowing with associated endplate irregularity and sclerosis. Several levels of bridging anterior osteophytes are seen. Soft tissues: No paravertebral stripe thickening. Atherosclerotic calcification of the aortic arch is noted. Right upper quadrant clips are seen. IMPRESSION: No david, acute plain film abnormality can be seen. If there is point tenderness (or other clinical suspicion for a fracture not seen on these images) then a dedicated CT could be considered for further evaluation, if clinically appropriate. Dictated by: Tano Berg M.D. on 07/27/2022 at 19:44 Approved by: Tano Berg M.D. on 07/27/2022 at 19:45
--- NOTE | 2022-07-27 20:11 | DI.RAD.S_ITS ---
PROCEDURE: XR LUMBAR SPINE 2-3V INDICATIONS: mid back pain TECHNIQUE: 2 views of the lumbar spine were acquired. COMPARISON: [facility], MR, MR THORACIC SPINE WO/W CON, 03/29/2020, 11:54. [facility], CR, XR THORACIC SPINE 2V, 07/27/2022, 20:11. [facility], CR, XR PELVIS WITH LATERAL HIP RIGHT, 02/06/2021, 13:14. FINDINGS: Bones: 5 nonrib-bearing, lumbar type vertebral bodies are seen. No displaced fractures are seen. No suspicious lytic or blastic lesions are seen. Minimal anterolisthesis is seen at L3-L4, with mild anterolisthesis at L4-L5. Minimal anterolisthesis is seen at L5-S1. Mild levoconvex scoliotic curvature is noted. There is moderate to severe disc space narrowing at L1-L2, with associated endplate irregularity and sclerosis. Eizi-ji-igdaigxa disc space narrowing can be seen at L2-L3, L3-L4, and L4-L5. Moderate disc space narrowing is seen at L5-S1. Lower lumbar spine facet arthropathy is seen. Right hip arthroplasty hardware is partially seen. Soft tissues: Overlying bowel gas pattern is normal. No suspicious soft tissue calcifications. Right upper quadrant clips are seen. IMPRESSION: No david, acute abnormality is seen by plain film. Multiple levels of degenerative change are seen, which are worst at the L1-L2 level. Dictated by: Tano Berg M.D. on 07/27/2022 at 19:52 Approved by: Tano Berg M.D. on 07/27/2022 at 19:53
--- NOTE | 2022-07-27 20:24 | PC.NURSE ---
Pt states she is voiding appropriately, denies any numbness or tingling.
[2022-07-27] MEDS: TRAMADOL 50 MG PREPACK 1 BOTTLE MISC (21:03)
== END 2022-07-27 21:11 | disposition home or self-care (01) ==
PROVIDERS: Emergency Provider Physician Assistant Medical; Family Provider Internal Medicine; PCP Internal Medicine
DX: M46.44 Discitis, unspecified, thoracic region (principal); Z79.82 Long term (current) use of aspirin; Z79.899 Other long term (current) drug therapy
CPT/HCPCS: 72070; 72100; 99283

== ENCOUNTER → 2022-10-06 07:57 | Outpatient (CLI) | payer MEDICARE, OTHER, SELFPAY ==
[2020-01-31 15:51] VITALS: BMI 29.9
--- NOTE | 2022-10-06 | DI.US.S_ITS ---
PROCEDURE: US FINE NEEDLE ASPIRATION INDICATIONS: NON TOXIC GOITER/THYROID MASS TECHNIQUE: The indications, alternatives, benefits, risks, and complications of the procedure were explained to the patient. Written informed consent was obtained and placed in the chart. The thyroid region was examined sonographically and a site was chosen for ultrasound guided percutaneous sampling. The skin was prepared and draped in the usual fashion, and anesthetized with 1% lidocaine infiltrated from the skin down to the thyroid gland. Multiple passes were then performed, with contents emptied into an appropriate pathology specimen container. A bandage was applied to the area of access at completion of the study. COMPARISON: [facility], , US THYROID, 09/24/2022, 14:00. FINDINGS: Location(s) of lesion(s) sampled: Left lobe inferior [place]: 25 gauge hypodermic needles. Number of passes: 6 Medications: 1% lidocaine for local anaesthesia. Complications: None. IMPRESSION: Successful ultrasound-guided thyroid nodule fine needle aspiration, with cytology results pending. Please see chart below for management recommendations based on cytology results. [place] [facility] ReportingRecommendationsNon-diagnostic* Repeat US-guided FNA, with on-site cytology evaluation if possible. * Repeated non-diagnostic nodules without high suspicion US features: close observation vs surgical consult. * Consider surgery if nodule has high suspicion US features, grows >20% in 2 dimensions on followup, or patient has clinical risk factors for malignancy. Benign* If nodule has high suspicion US features: repeat US and FNA within 12 months. * If nodule has low to intermediate suspicion US features: repeat US at 12-24 months. If nodule grows (20% increase in at least 2 dimensions, with minimal increase of 2 mm or >50% change in volume), or development of new suspicious US features, then repeat FNA or continue followup. * If nodule has very low suspicion US features: followup US at >24 months. Atypia of undetermined significance, follicular lesion of undetermined significanceRepeat FNA, molecular testing, followup US, or surgical consult.Follicular neoplasm, suspicious for follicular neoplasmSurgical consult; also consider molecular testing. Suspicious for malignancySurgical consult.MalignantSurgical consult. Dictated by: Agustin Saini M.D. on 10/06/2022 at 10:56 Approved by: Agustin Saini M.D. on 10/06/2022 at 11:00
--- NOTE | 2022-10-06 | PATH_ITS ---
Note [facility] Accession Number: [id number] TESTS RESULT FLAG UNITS REF RANGE LAB Clinician Provided Cytology Information No. of containers..01 Other (Miscellaneous) No. of containers..00 Previously Prepared Cytology Slide Source: [A] 01 LEFT INFERIOR THYROID NODULE DIAGNOSIS: [A] 01 LEFT INFERIOR THYROID NODULE SUSPICIOUS FOR MALIGNANCY. [place] CATEGORY V. SUSPICIOUS FOR PAPILLARY CARCINOMA. SPECIMEN CONSISTS OF FOLLICULAR CELLS WITH NUCLEAR ENLARGEMENT, NUCLEAR PALLOR WITH GROOVES. INTRANUCLEAR PSEUDOINCLUSIONS ARE RARE. THIS PATTERN IS SUSPICIOUS FOR PAPILLARY CARCINOMA. Pathologist ICD10: 01 R89.6 Clinical history: 01 The right thyroid lobe measures 4.5 cm in length, 1.6 cm in width and 3.0 cm AP dimension. There is no definite dominant mass in the right lobe.Scattered small cysts are seen at least a couple with what appear to be some peripheral punctate calcification, suggestive of colloid cysts. There is also an approximately 4 to 5 shadowing calcification in the mid anterior right lobe. The left thyroid lobe measures 4.7 cm in Length,2.0 cm in width and 2.6 cm AP dimension.It has a lobulated or irregular hypoechoic mass in the lower posterior pole measuring 3.0 cm in height,1.8 cm in width and 1.8 cm AP dimension (2.2 cm average diameter) . This mass has a coarse shadowinq calcification at the upper aspect, as well as some punctate internal nonshadowing calcifications and corresponds to the doninant: left lobe lesion seen on CTA. It is highly suspicious for malignancy (TI-RADS 5 lesion) . Based on size and sonographic appearance, a fine-needle aspiration is recommended.The remainder of the left lobe is mildly heterogeneous with scattered small subcentimeter cysts and/or ovoid nodules, not segniliaant. The thyroid isthmus is normal, measuring 2 to 3 in thickness. There no obvious lymphadenopathy or other abnormality CONCLUSION : 1. HighLy suspicious lower pole Left thyroid mass with calcifications measuring 2.2 cm average diameter,for which fine-needle aspiration is recommended. 2. Scattered cysts right thyroid lobe and normal thyroid isthmus. Signed out by: 01 Jennifer Rivers MD, Pathologist NPI- [id number] Performed by: Rigo Payne, Milieu Counselor ([facility]) Gross description: 01 30 CC, COLORLESS, CLEAR RECIEVED: IN CYTOLYT WITH 5 ALCOHOL FIXED AND 5 QUICK STAINED SLIDES ALSO 1 RNA VIAL WAS RECEIVED.VO /VDU 10/07/2022 0719 Local FLAG LEGEND: L-Low Normal,H-High Normal,LL-Alert Low,HH-Alert High <-Panic Low,>-Panic High,A-Abnormal,AA-Critical Abnormal Performed at: 01 =Z [facility] [address], [place] [address] Eduardo Flores MD, Performed at: 01 [facility] [address], [place], [place] [id number] MD Eduardo Flores MD Phone: [phone]
== END ==
PROVIDERS: Family Provider Internal Medicine; PCP Nurse Practitioner Family; Referring Provider Nurse Practitioner Family; Visit Provider Nurse Practitioner Family
DX: E04.1 Nontoxic single thyroid nodule (principal)
CPT/HCPCS: 10005

== ENCOUNTER → 2024-11-28 12:28 | Outpatient (CLI) | payer MEDICARE, OTHER, SELFPAY ==
[2020-01-31 15:51] VITALS: BMI 29.9
[2024-11-28 13:21] LABS: Add Manual Diff / Slide Review NO; Basophils Absolute Auto 0 /uL (0-100); Basophils Percent Auto 0.8 % (0-2); Eosinophils Absolute Auto 200 /uL (0-450); Eosinophils Percent Auto 3.5 % (2-4); Hematocrit 34.8 % (36-46); Lymphocytes Absolute Auto 1100 /uL (1100-4500); Lymphocytes Percent Auto 25.1 % (25-40); Mean Corpuscular HGB Conc 34.6 % (30-36); Mean Corpuscular Hemoglobin 30.4 PG (26-34); Mean Corpuscular Volume 87.8 fL (80-100); Monocytes Absolute Auto 400 /uL (0-900); Neutrophils Absolute Auto 2700 /uL (1500-7000); Neutrophils Percent Auto 60.6 % (50-75); Platelet Count 181 X10^3/uL (150-400); Red Blood Cell Count 3.96 X10^6/uL (4.0-5.2); Red Cell Distribution Width 14.2 % (11.6-14.8); White Blood Cell Count 4.5 X10^3/uL (4.5-11.0)
[2024-11-28 13:40] LABS: BUN Creatinine Ratio 22.9 (6-22); Blood Urea Nitrogen 22 mg/dL (7-17); Calcium 9.3 mg/dL (8.4-10.2); Carbon Dioxide 25 mmol/L (22-32); Chloride 105 mmol/L (98-107); Cholesterol 130 mg/dL (140-199); Estimated Glomerular Filt Rate 57 mL/min (>60); Glucose 89 mg/dL (70-99); HDL Cholesterol 70 mg/dL (40-60); HEMOLYSIS < 15 (0-50); LDL Cholesterol Calculated 48 mg/dL (<100); Potassium 4.5 mmol/L (3.4-5.1); Sodium 137 mmol/L (137-145); Triglycerides 58 mg/dL (35-150)
== END ==
PROVIDERS: Family Provider Internal Medicine; PCP Family Medicine; Referring Provider Internal Medicine Cardiovascular Disease; Visit Provider Internal Medicine Cardiovascular Disease
DX: I10 Essential (primary) hypertension (principal)
CPT/HCPCS: 36415; 80048; 80061; 85025

== ENCOUNTER → 2025-01-02 10:57 | Outpatient (CLI) | payer MEDICARE, OTHER, SELFPAY ==
[2020-01-31 15:51] VITALS: BMI 29.9
[2025-01-02 12:56] LABS: Thyroid Stimulating Hormone 2.09 uIU/mL (0.47-4.68)
== END ==
PROVIDERS: Family Provider Internal Medicine; PCP Family Medicine; Referring Provider Internal Medicine Endocrinology, Diabetes & Metabolism; Visit Provider Internal Medicine Endocrinology, Diabetes & Metabolism
DX: E89.0 Postprocedural hypothyroidism (principal)
CPT/HCPCS: 36415; 84439; 84443

== ENCOUNTER → 2025-05-03 15:19 | Outpatient (CLI) | payer MEDICARE, OTHER, SELFPAY ==
[2020-01-31 15:51] VITALS: BMI 29.9
--- NOTE | 2025-05-03 15:21 | DI.RAD.S_ITS ---
PROCEDURE: FL BARIUM SWALLOW INDICATIONS: DYSPHAGIA COMPARISON: None. FINDINGS: Function: There is normal esophageal peristalsis. No elicited gastroesophageal reflux. Morphology: Air-contrast images demonstrate normal mucosal morphology. Single contrast views show no esophageal strictures, extrinsic mass effects, or diverticula. Small hiatal hernia. Limited images of the stomach demonstrate normal appearance. IMPRESSION: Small hiatal hernia. Dictated by: Micheal Rico M.D. on 05/03/2025 at 17:00 Approved by: Micheal Rico M.D. on 05/03/2025 at 17:02
== END ==
PROVIDERS: Family Provider Internal Medicine; PCP Family Medicine; Visit Provider Radiology Diagnostic Radiology
DX: R13.14 Dysphagia, pharyngoesophageal phase (principal); K44.9 Diaphragmatic hernia without obstruction or gangrene
CPT/HCPCS: 74220

== ENCOUNTER → 2025-07-06 13:48 | Outpatient (CLI) | payer MEDICARE, OTHER, SELFPAY ==
[2020-01-31 15:51] VITALS: BMI 29.9
[2025-07-06 16:03] LABS: Thyroid Stimulating Hormone 5.04 uIU/mL (0.47-4.68)
== END ==
PROVIDERS: Family Provider Internal Medicine; PCP Family Medicine; Referring Provider Internal Medicine Endocrinology, Diabetes & Metabolism; Visit Provider Internal Medicine Endocrinology, Diabetes & Metabolism
DX: E89.0 Postprocedural hypothyroidism (principal)
CPT/HCPCS: 36415; 84439; 84443